=== PATIENT | female | born 1970 | race Asian ===

== ENCOUNTER 2020-07-26 13:37 | Emergency (ER) | payer MEDICAID ==
[~2020-07-26] VITALS: Ht 152.4 cm; Wt 71.0 kg
[2020-07-26 13:41] VITALS: BP 136/97
[2020-07-26] MEDS ORDERED: HYDR30CR80 TP (14:16)
== END 2020-07-26 14:45 | disposition home or self-care (01) ==
LOC: ER 14:05
DX: K64.4 Residual hemorrhoidal skin tags (principal); I10 Essential (primary) hypertension; Z90.49 Acquired absence of other specified parts of digestive tract
CPT/HCPCS: 99281

== ENCOUNTER 2020-10-26 16:25 | Emergency (ER) | payer MEDICAID ==
[~2020-10-26] VITALS: Ht 149.9 cm; Wt 74.0 kg
[~2020-10-26 16:25] MED LIST: HYDR30CR80 TP
[2020-10-26 16:36] VITALS: BP 132/95
== END 2020-10-26 21:33 | disposition left against medical advice (07) ==
LOC: ER 16:25
DX: R07.9 Chest pain, unspecified (principal); Z53.21 Procedure and treatment not carried out due to patient leaving prior to being seen by health care provider
CPT/HCPCS: 93005

== ENCOUNTER 2021-03-01 14:31 | Emergency (ER) | payer MEDICAID, OTHER ==
[~2021-03-01] VITALS: Ht 162.6 cm; Wt 66.0 kg
[2021-03-01 14:37] VITALS: BP 135/93
[2021-03-01] MEDS ORDERED: PSYL0.4C2 MT (16:49)
[2021-03-01] MEDS ORDERED: HYDR25SU37 RC (16:49)
== END 2021-03-01 17:00 | disposition home or self-care (01) ==
LOC: ER 14:31
DX: K64.4 Residual hemorrhoidal skin tags (principal); I10 Essential (primary) hypertension; Z90.49 Acquired absence of other specified parts of digestive tract
CPT/HCPCS: 99281